=== PATIENT | male | born 1995 | race Caucasian/White ===

== ENCOUNTER 2024-12-03 23:20 | Emergency (ER) | payer OTHER, SELFPAY ==
--- OUTSIDE RECORDS SUMMARY | 2024-12-03 23:21 | XMS_ITS | Continuity of Care Document ---
Author Name [facility] Address [address] [place] [address] Organization [facility] Care Team Providers Care Beef Skinner Name Role Phone [facility] Unavailable Unavailable Allergies, Adverse Reactions, Alerts Substance Category Reaction Severity Reaction type Status Date Reported Comments Source Augmentin Assertion Drug allergy Active [facility] Encounters Location Location Details Encounter Type Encounter Number Reason For Visit Attending Provider ADM Date DC Date Status Source FPA FPA OUTPATIENT [id number] EST CARE/REQ UESTING INJ Bala Bonilla Cancel [facility] [place]
[2024-12-03 23:22] VITALS: BP 135/84; PULSE 76; RESP 16; TEMP 36.3; O2SAT 97; BMI 28.9
--- NOTE | 2024-12-04 00:03 | ED_ITS ---
HPI - General Adult General Chief complaint: Flank Pain Stated complaint: shooting pain in kidney Time Seen by Provider: 12/03/24 23:59 History of Present Illness HPI narrative: pain in lower right back area . pt thinks it could be a kidney stone. Pain started around 2229. Cough medicine and ibuprofen taken earlier today. Pt states being sick earlier this week, home covid test was negative. No reported trauma . Normal urination and bowel movements . 29 year old man presenting to the emergency department with concern of right lower back area pain. Began abruptly at rest about an hour prior to presentation. He has been sick with some cough cold symptoms earlier this week. Pain is not pleuritic. Somewhat colicky. Radiating from his back down to his leg almost. Though as we discussed it further he would endorse that it seems to be radiating through the flank area to his genitals. Has not urinated since this occurred. Has had no fever. No noted hematuria recently. No history kidney stones. Normal bowel movements. Just has not been able to get comfortable. No exacerbating or relieving factors really. Related Data Previous Rx's ?Medication ?Instructions ?Recorded tamsulosin 0.4 mg capsule (Flomax) 0.4 mg PO DAILY #14 caps 12/04/24 Allergies Allergy/AdvReac Type Severity Reaction Status Date / Time amoxicillin (From Augmentin) Allergy Intermediate Verified 12/03/24 23:27 clavulanic acid (From Allergy Intermediate Verified 12/03/24 23:27 Augmentin) Review of Systems Status of ROS: Reports: 6 or more systems reviewed and unremarkable except as noted in History and below Exam Narrative: Exam Narrative: Pleasant. Seems generally uncomfortable but not demonstrating greatly. Breathing easily. Lungs appear to be clear. Heart in regular rate and rhythm. Abdomen is soft. Ticklish complicating abdominal exam but is not really tender in the abdomen. Vaguely reproducible in the right flank. Not with SI joint tenderness. Extremities are well perfused without edema. Const: Vital Signs, click to edit/add: Vital Signs - 24 hr 12/03/24 23:22 Temperature 97.4 F L Pulse Rate [Left P ulse Oximeter] 76 Respiratory Rate 16 Blood Pressure [Ri ght Upper Arm] 135/84 Pulse Oximetry 97 Oxygen Delivery Me thod Room Air Documenting provider has reviewed patient's vital signs: yes Course Vital Signs Vital signs: Initial Vital Signs Temperature 97.4 F L 12/03/24 23:22 Temperature Source Temporal Artery Scan 12/03/24 23:22 Pulse Rate 76 12/03/24 23:22 Pulse Rhythm Regular 12/03/24 23:22 Respiratory Rate 16 12/03/24 23:22 Blood Pressure 135/84 12/03/24 23:22 Blood Pressure Mean 101 12/03/24 23:22 Blood Pressure Position Sitting 12/03/24 23:22 Pulse Oximetry 97 12/03/24 23:22 Oxygen Delivery Method Room Air 12/03/24 23:22 Vital Signs Temperature 97.4 F L 12/03/24 23:22 Pulse Rate 76 12/03/24 23:22 Respiratory Rate 16 12/03/24 23:22 Blood Pressure 135/84 12/03/24 23:22 Pulse Oximetry 97 12/03/24 23:22 Oxygen Delivery Method Room Air 12/03/24 23:22 Temperature 97.4 F L 12/03/24 23:22 Pulse Rate 76 12/03/24 23:22 Respiratory Rate 16 12/03/24 23:22 Blood Pressure 135/84 12/03/24 23:22 Pulse Oximetry 97 12/03/24 23:22 Oxygen Delivery Method Room Air 12/03/24 23:22 Medications Administered Medications: Discontinued Medications Generic Name Dose Route Start Last Admin Trade Name Félixq PRN Reason Stop Dose Admin Sodium Chloride 1,000 mls @ 1,000 mls/hr 12/04/24 00:15 12/04/24 01:01 0.9 % Sodium Chloride 1000 Ml IV 12/04/24 01:14 Infused .Q1H ONE Infusion Ketorolac Tromethamine 30 mg 12/04/24 00:15 12/04/24 00:27 Ketorolac 30 Mg/Ml Inj IVP 12/04/24 00:16 30 mg ONCE ONE Administration Morphine Sulfate 4 mg 12/04/24 00:15 12/04/24 00:27 Morphine 4 Mg/Ml Inj IVP 12/04/24 00:16 4 mg ONCE ONE Administration Tamsulosin HCl 0.4 mg 12/04/24 01:03 12/04/24 01:20 Tamsulosin Hcl 0.4 Mg Capsule PO 12/04/24 01:04 0.4 mg ONCE ONE Administration Medical Decision Making MDM Narrative Medical decision making narrative: Would presume ureteral stone and colic with first-time presentation. Anticipate imaging. Will tried offer pain relief fluids with morphine and ketorolac. Was certainly could be radicular back pain or urinary tract infection though I think less likely. Not likely to have vascular disruption. CT scan independently reviewed by me shows a 2-3 mm stone at the ureteral vesicular junction on the right. Mild hydronephrosis on the same side. Labs are reassuring Also given dose of Flomax. Radiology over-read of imaging confirms read above TECHNIQUE: CT abdomen and pelvis without contrast. COMPARISON: None. FINDINGS: Lower chest: Unremarkable. Liver: Normal in size and attenuation. No suspicious masses. Gallbladder and bile ducts: No stones or inflammation. No biliary dilatation. Pancreas: Unremarkable. No mass or inflammation. Spleen: Normal in size. No masses. Adrenal glands: Normal in size. No nodules. Kidneys: Mild right hydronephrosis secondary to obstructing 2 millimeter right UVJ stone. GI tract: Unremarkable. Normal in caliber. No sign of mass or inflammation. Normal appendix. Vasculature: Abdominal aorta is normal in caliber. Lymph nodes: No lymphadenopathy. Peritoneum/Abdominal Wall: Unremarkable. No sign of mass or infiltration. No free air or significant free fluid. Pelvis: Unremarkable. No pelvic masses. Bones: Unremarkable for age. IMPRESSION: Mild right hydronephrosis secondary to obstructing 2 millimeter right UVJ stone. Discussed all findings with Ronald and his parents who accompanied. Symptoms are markedly improved and is ready for discharge. No further events. See patient discharge plan for further discussion Consider strain your urine yet over this next week. If you do collect a stone, gravel, can take this in to clinic for analysis. This might be helpful for further recommendations on how to avoid them in the future other than just generally staying well hydrated with water. Be seen if pain is persisting at 5 days or sooner for uncontrolled pain, fever, associated repeated vomiting. Prescribing Percocet as opiate for pain management if necessary, if ibuprofen is not enough. Can take up to 800 mg ibuprofen per dose. This can be combined with acetaminophen or Percocet. Can take up to 1000 mg of acetaminophen per dose. Keep in mind that each tablet of Percocet contains 325 mg of acetaminophen. Also sending in a prescription for Flomax. Continue to take this daily until suspect resolution of/passage of the stone. This medication can be helpful with spasm Lab Data Lab results reviewed: Yes I reviewed the patient's lab results Labs: Lab Results 12/04/24 Range/Units 00:28 WBC 5.14 (4.50-11.00) K/uL RBC 5.46 (4.30-5.90) m/uL Hgb 16.2 (13.5-17.5) gm/dL Hct 47.1 (37.0-53.0) % MCV 86 (80-100) fL MCH 30 (26-34) pg MCHC 34 (32-36) gm/dL RDW Coeff of Mariam 12.3 (11.5-15.5) % Plt Count 204 (140-440) K/uL Neut % (Auto) 42.7 (42.0-72.0) % Lymph % (Auto) 44.7 H (20-44) % [place] % (Auto) 9.9 (0.0-11.0) % Eos % (Auto) 2.1 (0.0-7.0) % Baso % (Auto) 0.4 (0.0-3.0) % Neut # (Auto) 2.19 (1.7-7.0) K/uL Lymph # (Auto) 2.30 (0.90-2.90) K/uL [place] # (Auto) 0.50 (0.00-0.90) K/UL Eos # (Auto) 0.11 (0.00-0.50) K/uL Baso # (Auto) 0.02 (0.00-0.30) K/uL Abs Immat Gran (auto) 0.01 (0.00-0.30) K/uL Imm/Tot Granulo (auto) 0.2 % Sodium 143 (135-149) mmol/L Potassium 3.5 L (3.6-5.1) mmol/L Chloride 106 (96-114) mmol/L Carbon Dioxide 27 (20-32) mmol/L Anion Gap 10 (7-15) mEq/L BUN 22 (5-24) mg/dL Creatinine 1.0 (0.5-1.5) mg/dL Estimated Creat Clear 105.45 Estimated GFR 104 ml/min Glucose 128 H (60-115) mg/dL Calcium 9.1 (8.4-10.6) mg/dL Urine Color Yellow (Yellow) Urine Appearance Clear (Clear) Urine pH 6.0 (5.0-8.5) Ur Specific [place] >= 1.030 (1.000-1.030) Urine Protein Negative (Negative) Urine Glucose (UA) Negative (Negative) Urine Ketones Negative (Negative) Urine Blood Trace-intact A (Negative) Urine Nitrite Negative (Negative) Urine Bilirubin Negative (Negative) Urine Urobilinogen 0.2 (0.2-1.0) Ur Leukocyte Esterase Negative (Negative) Urine RBC 0-2 (0-2) Urine WBC 0-2 (0-5) Ur Squamous Epith Cells None (None-Few) Urine Bacteria None (None) Discharge Plan Discharge Clinical Impression: Right ureteral stone, Ureteral colic Patient Disposition: Home w/ Parent or Adult Condition: Improved Instructions: How to Strain Your Urine (ED), Ureteral Stones (ED) Additional Instructions: Consider strain your urine yet over this next week. If you do collect a stone, gravel, can take this in to clinic for analysis. This might be helpful for further recommendations on how to avoid them in the future other than just generally staying well hydrated with water. Be seen if pain is persisting at 5 days or sooner for uncontrolled pain, fever, associated repeated vomiting. Prescribing Percocet as opiate for pain management if necessary, if ibuprofen is not enough. Can take up to 800 mg ibuprofen per dose. This can be combined with acetaminophen or Percocet. Can take up to 1000 mg of acetaminophen per dose. Keep in mind that each tablet of Percocet contains 325 mg of acetaminophen. Also sending in a prescription for Flomax. Continue to take this daily until suspect resolution of/passage of the stone. This medication can be helpful with spasm Prescriptions: New tamsulosin [Flomax] 0.4 mg capsule 0.4 mg PO DAILY Qty: 14 0RF Follow Up/Referrals: Provider,Not a Local [Primary Care Provider] - Stand Alone Forms: [employer] Info Instructions
--- NOTE | 2024-12-04 00:15 | CRLHL7_ITS ---
For Patients: As a result of the Century Cures Act, medical imaging exams and procedure reports are released immediately into your electronic medical record. You may view this report before your referring provider. If you have questions, please contact your health care provider. INDICATION: Sudden right flank pain. TECHNIQUE: CT abdomen and pelvis without contrast. COMPARISON: None. FINDINGS: Lower chest: Unremarkable. Liver: Normal in size and attenuation. No suspicious masses. Gallbladder and bile ducts: No stones or inflammation. No biliary dilatation. Pancreas: Unremarkable. No mass or inflammation. Spleen: Normal in size. No masses. Adrenal glands: Normal in size. No nodules. Kidneys: Mild right hydronephrosis secondary to obstructing 2 millimeter right UVJ stone. GI tract: Unremarkable. Normal in caliber. No sign of mass or inflammation. Normal appendix. Vasculature: Abdominal aorta is normal in caliber. Lymph nodes: No lymphadenopathy. Peritoneum/Abdominal Wall: Unremarkable. No sign of mass or infiltration. No free air or significant free fluid. Pelvis: Unremarkable. No pelvic masses. Bones: Unremarkable for age. IMPRESSION: Mild right hydronephrosis secondary to obstructing 2 millimeter right UVJ stone. Please note that all CT scans at this facility use dose modulation, iterative reconstruction, and/or weight-based dosing when appropriate to reduce radiation dose to as low as reasonably achievable. Dictated by Jeremías Cui MD @ 12/04/2024 12:47:52 AM (Electronically Signed)
[2024-12-04] MEDS: 0.9 % SODIUM CHLORIDE 1000 ml 1,000 ML IV (00:26)
[2024-12-04] MEDS: KETOROLAC 30 MG/ML inj IVP (00:27)
[2024-12-04] MEDS: MORPHINE 4 MG/ML INJ IVP (00:27)
[2024-12-04 00:46] LABS: Basophils Absolute Auto 0.02 K/uL (0.00-0.30); Basophils Percent Auto 0.4 % (0.0-3.0); Eosinophils Absolute Auto 0.11 K/uL (0.00-0.50); Eosinophils Percent Auto 2.1 % (0.0-7.0); Hematocrit 47.1 % (37.0-53.0); Hemoglobin* 16.2 gm/dL (13.5-17.5); Immature Granulocytes Abs Auto 0.01 K/uL (0.00-0.30); Immature Granulocytes Pct Auto 0.2 %; Lymphocytes Percent Auto 44.7 % (20-44); Mean Corpuscular HGB Conc 34 gm/dL (32-36); Mean Corpuscular Hemoglobin 30 pg (26-34); Mean Corpuscular Volume 86 fL (80-100); Monocytes Percent Auto 9.9 % (0.0-11.0); Neutrophils Absolute Auto 2.19 K/uL (1.7-7.0); Neutrophils Percent Auto 42.7 % (42.0-72.0); Platelet Count* 204 K/uL (140-440); RDW Coefficient of Variation % 12.3 % (11.5-15.5); Red Blood Count 5.46 m/uL (4.30-5.90); White Blood Count* 5.14 K/uL (4.50-11.00)
--- OUTSIDE RECORDS SUMMARY | 2024-12-04 00:58 | XMS_ITS | Continuity of Care Document ---
Author Name [facility] Address [address] [place] [address] Organization [facility] Care Team Providers Care Podiatrist Assistant Name Role Phone [facility] Unavailable Unavailable Allergies, Adverse Reactions, Alerts Substance Category Reaction Severity Reaction type Status Date Reported Comments Source Augmentin Assertion Drug allergy Active [facility] Encounters Location Location Details Encounter Type Encounter Number Reason For Visit Attending Provider ADM Date DC Date Status Source FPA FPA OUTPATIENT [id number] EST CARE/REQ UESTING INJ Bala Bonilla Cancel [facility]
[2024-12-04 01:02] LABS: Chloride* 106 mmol/L (96-114)
[2024-12-04 01:03] LABS: Potassium* 3.5 mmol/L (3.6-5.1); Sodium* 143 mmol/L (135-149)
[2024-12-04 01:05] LABS: Est. Creatinine Clearance* 105.45; Estimated Glomerular Filt Rate 104 ml/min
[2024-12-04 01:06] LABS: Anion Gap 10 mEq/L (7-15); Blood Urea Nitrogen* 22 mg/dL (5-24); Calcium* 9.1 mg/dL (8.4-10.6); Carbon Dioxide* 27 mmol/L (20-32); Glucose* 128 mg/dL (60-115)
[2024-12-04 01:07] LABS: Slide Review Reflex No
[2024-12-04] MEDS: TAMSULOSIN HCL 0.4 MG CAPSULE PO (01:20)
[2024-12-04 01:40] LABS: Appearance Urine Clear (Clear); Bilirubin Urine Negative (Negative); Blood Urine Trace-intact (Negative); Color Urine Yellow (Yellow); Glucose Urine Negative (Negative); Ketones Urine Negative (Negative); Leukocyte Esterase Urine Negative (Negative); Nitrite Urine Negative (Negative); Protein Urine Negative (Negative); Specific Gravity Urine >= 1.030 (1.000-1.030); Urobilinogen Urine 0.2 (0.2-1.0)
[2024-12-04 01:52] LABS: RBC Urine 0-2 (0-2); WBC Urine 0-2 (0-5)
== END 2024-12-04 01:51 | disposition home or self-care (01) ==
PROVIDERS: Emergency Provider Family Medicine
DX: N20.1 Calculus of ureter (principal)
CPT/HCPCS: 36415; 74176; 80048; 81001; 81003; 85025; 96374; 96375; 99284; A9270; J1885; J2270; J7030